=== PATIENT | male | born 1980 | race African-American/Black ===

== ENCOUNTER 2019-03-07 20:35 | Emergency (ER) | payer MEDICAID ==
--- NOTE | 2019-03-07 21:32 | ED Physician Chart ---
ED Chief Complaint/HPI - Patient Information Date Seen:: 03/07/19 Time Seen:: 21:32 Chief Complaint:: Itchy feet History of Present Illness:: 38 yo homeless male with history of chronic neck pain and low back pain, had itchiness of bilateral feet for 1 week. Pt requested to take a shower. Vitals:: Vital Signs - 8 hr 03/07/19 21:17 Temp 98.5 F HR 69 RR 18 BP 133/80 O2 Sat % 97 ED Review of Systems - Review of Systems General/Constitutional: No fever Head: No headache Eyes: No pain ENT: No nasal drainage Neck: No neck pain Cardio Vascular: No chest pain Pulmonary: No SOB GI: No nausea, No vomiting Musculoskeletal: No bone or joint pain Neurological: No focal symptoms ED Past Medical History - Past Medical History Past Medical History: HTN, Other (Chronic neck pain and low back pain) Social History: Smoker, No Alcohol, Illicit Drug Use (marijuana) Surgical History: None Family Medical History - Family Member Mother History Unknown: Yes ED Physical Exam - Physical Examination General/Constitutional: Awake, Alert Head: Atraumatic Eyes: PERRL, EOMI Other Skin comments:: Dry, itchy skin of bilateral lower extremities ENMT: Nasal exam nl Neck: No nuchal rigidity Respiratory: No Wheeze/Rhonchi/Rales Cardio Vascular: RRR, No murmur, gallop, rubs, NL S1 S2 GI: No tenderness/rebounding/guarding Extremities: normal strength in all extremities Neuro/Psych: No focal deficits ED Assessment - Assessment General Assessment: Dermatitis Assessment/Comments:: Pt took a shower. Benadryl 25 mg PO ED Septic Shock - . Is Septic Shock (SBP<90, OR Lactate>4 mmol\L) present?: No - <6hrs of presentation: Vital Signs: Vital Signs - 8 hr 03/07/19 21:17 Temp 98.5 F HR 69 RR 18 BP 133/80 O2 Sat % 97 ED Reassessment (Disposition) - Reassessment Reassessment Condition:: Improved - Patient Disposition Discharge/Transfer:: Home
== END 2019-03-07 22:30 | disposition home or self-care (01) ==
LOC: ER 20:35
DX: L30.9 Dermatitis, unspecified (principal); I10 Essential (primary) hypertension; G89.29 Other chronic pain; F17.200 Nicotine dependence, unspecified, uncomplicated